=== PATIENT | male | born 1960 | race Caucasian/White ===

== ENCOUNTER → 2016-06-28 | Outpatient (CLI) | payer BC ==
[~2016-06-28] MED LIST: IBUP-1427 PO; LOSA50TA6 PO; OMEP20TA PO; OXYC7.5T78 PO
== END | disposition home or self-care (01) ==
LOC: C.LABBFT 10:39
PROVIDERS: ATTEND Internal Medicine
DX: Z12.5 Encounter for screening for malignant neoplasm of prostate (principal)

== ENCOUNTER → 2016-09-27 | Day surgery (SDC) | payer BC ==
[2016-09-13 10:53] VITALS: Ht 179.1 cm; Wt 95.5 kg
[~2016-09-27] VITALS: Ht 179.1 cm; Wt 95.5 kg
[~2016-09-27] MED LIST changes: -IBUP-1427 PO; +LIDOCAINE HCL 2% 2 ML VIAL (20MG/ML) ONE; +MIDAZOLAM HCL 1 MG/ML 2ML VIAL ONE; +ONDANSETRON INJ 2 MG/ML 2 ML VIAL ONE; -OXYC7.5T78 PO; +PROPOFOL IV EMULSION 10 MG/ML 20 ML VIAL IV ONE; +SODIUM CHLORIDE 0.9% 500ML 500 ML IV ONE
--- NOTE | 2016-09-27 08:16 | Endo History and Physical ---
History & Physical Date of Service: Sep 27, 2016. Chief Complaint: screening,history of polyps Referring Physician: Dr. Alexx Carcamo History of Present Illness 56 yo CM who presents for colonoscopy secondary to history of colon polyps. Past Medical History Male Genitourinary Prob., Reflux, Other Past Surgical History Hx Cardiac Surgery: No Hx Internal Defibrillator: No Hx Pacemaker: No Hx Abdominal Surgery: Yes (INGUINAL HERNIA) Hx of Implantable Prosthesis: No Hx Post-Op Nausea and Vomiting: No Hx Cancer Surgery: No Hx Thoracic Surgery: No Hx Orthopedic: No Hx Urinary Tract Surgery: No Family History Colon CA Social History Smoking Status: Never Smoker Hx Substance Use: No Hx Alcohol Use: Yes (RARELY) Allergies Coded Allergies: Penicillins (Verified Allergy, Unknown, RASH, 09/27/16) Sulfa Antibiotics (Verified Allergy, Unknown, RASH, 09/13/16) Current Medications Reported Home Medications Medications Dose Route/Sig Max Daily Dose Days Date Category Cozaar (Losartan Potassium) 50 Mg Tab 50 Mg PO QAM 09/13/16 Reported Omeprazole 20 Mg Tab 20 Mg PO QAM 12/11/13 Reported Vital Signs Weight (Kilograms): 95.45 Height (Feet): 5 Height (Inches): 10.5 Date Time Temp Pulse Resp B/P Pulse Ox O2 Delivery O2 Flow Rate FiO2 09/27/16 08:04 36.3 94 20 147/93 97 Room Air Physical Exam General Appearance: WD/WN, no apparent distress Respiratory/Chest: Auscultation: breath sounds normal Cardiovascular: Heart Auscultation: RRR Abdomen: Bowel Sounds: normal Inspection & Palpation: soft, non-distended, no tenderness, guarding & rebound Assessment and Plan Assessment: 56 yo CM who presents for colonoscopy secondary to history of colon polyps. Plan: Proceed with colonoscopy.
--- NOTE | 2016-09-27 08:51 | Discharge Instructions ---
Endoscopy Patient Instructions Date / Procedure(s) Performed Sep 27, 2016. Colonoscopy Allergy Information Coded Allergies: Penicillins (Verified Allergy, Unknown, RASH, 09/27/16) Sulfa Antibiotics (Verified Allergy, Unknown, RASH, 09/13/16) Discharge Date / Findings Sep 27, 2016. Colon polyp Diverticulosis Medication Instructions OK to resume all medications today as prescribed Reported Home Medications Medications Dose Route/Sig Max Daily Dose Days Date Category Cozaar (Losartan Potassium) 50 Mg Tab 50 Mg PO QAM 09/13/16 Reported Omeprazole 20 Mg Tab 20 Mg PO QAM 12/11/13 Reported Provider Instructions Activity Restrictions - No exercising or heavy lifting for 24 hours. - Do not drink alcohol the day of the procedure. - Do not drive a car or operate machinery until the day after the procedure. - Do not make any important decisions or sign important papers in 24 hours after the procedure. Following Day: - Return to full activity which may include returning to work/school. Diet Start your diet with liquids and light foods (jello, soup, juice, toast). Then eat your usual diet if not nauseated. Treatment For Common After Affects For mild abdominal pain, bloating, or excessive gas: - Rest - Eat lightly - Lie on right side Follow-Up Information Follow-up with Dr. Alexx Carcamo as scheduled Anesthesia Information What You Should Know You have had a procedure that required some medicine to reduce anxiety and discomfort. This treatment is called moderate sedation. After receiving the treatment, you may be sleepy, but you will be able to breathe on your own. The effects of the treatment may last for several hours. Follow these instructions along with Activity/Diet recommendations noted above: * Do NOT do anything where dizziness or clumsiness would be dangerous. * Rest quietly at home today, then you can be up and about tomorrow. * Have a responsible person stay with you the rest of today. * You may have had an I.V. today. If so, you may take the dressing off later today. Recommendations Call your doctor if: * Trouble breathing * Continuous vomiting for more than 24 hours * Temperature above 101 degrees * Severe abdominal pain or bloating * Pain not relieved by pain medicine ordered * There is increased drainage or redness from any incision * A large amount of rectal bleeding greater than 2-3 tablespoons. (If you had a polyp/s removed or have hemorrhoids, a small amount of blood - from the rectum is to be expected.) * You have any unanswered questions or concerns. IN THE EVENT OF A SERIOUS EMERGENCY, GO TO THE NEAREST EMERGENCY ROOM Your discharge instructions were prepared by provider Javier Peck. Patient Instructions Signature Page Berny Pope Patient (or Guardian) Signature/Date: I have read and understand the instructions given to me by my caregivers. Caregiver/RN/Doctor Signature/Date: The above-named patient and/or guardian has received patient instructions on this date. + Original Patient Signature Page (only) stays with chart. Please make copy for patient.
--- NOTE | 2016-09-27 08:55 | GI REPORT ---
Procedure Date: 09/27/2016 8:34 AM Procedure: Colonoscopy Indications: High risk colon cancer surveillance: Personal history of colonic polyps Medicines: Monitored Anesthesia Care Complications: No immediate complications. Estimated Blood Loss: Estimated blood loss: none. Procedure: Pre-Anesthesia Assessment: - Prior to the procedure, a History and Physical was performed, and patient medications and allergies were reviewed. The patient's tolerance of previous anesthesia was also reviewed. The risks and benefits of the procedure and the sedation options and risks were discussed with the patient. All questions were answered, and informed consent was obtained. Prior Anticoagulants: The patient has taken no previous anticoagulant or antiplatelet agents. ASA Grade Assessment: II - A patient with mild systemic disease. After reviewing the risks and benefits, the patient was deemed in satisfactory condition to undergo the procedure. After I obtained informed consent, the scope was passed under direct vision. Throughout the procedure, the patient's blood pressure, pulse, and oxygen saturations were monitored continuously. The On-site loaner was introduced through the anus and advanced to the terminal ileum. The colonoscopy was performed without difficulty. The patient tolerated the procedure well. The quality of the bowel preparation was good. The terminal ileum, ileocecal valve, appendiceal orifice, and rectum were photographed. Findings: A 4 mm polyp was found in the ascending colon. The polyp was sessile. The polyp was removed with a cold snare. Resection and retrieval were complete. Multiple small-mouthed diverticula were found in the sigmoid colon. Impression: - One 4 mm polyp in the ascending colon, removed with a cold snare. Resected and retrieved. - Diverticulosis in the sigmoid colon. Recommendation: - Resume previous diet. - Continue present medications. - Repeat colonoscopy for surveillance based on pathology results. - Return to primary care physician as previously scheduled. Javier Peck DO 09/27/2016 8:55:27 AM This report has been signed electronically. Note Initiated On: 09/27/2016 8:34 AM I attest to the content of the Intraoperative Record and orders documented therein, exceptions below
--- NOTE | 2016-09-27 09:03 | Anesthesiology Progress Note ---
Anesthesia Post Op Note Date & Time Sep 27, 2016 at 09:03 Vital Signs Pain Intensity: 0 Vital Signs Past 12 Hours Date Time Temp Pulse Resp B/P Pulse Ox O2 Delivery O2 Flow Rate FiO2 09/27/16 08:53 93 16 110/93 95 Room Air 09/27/16 08:04 36.3 94 20 147/93 97 Room Air Notes Mental Status: alert / awake / arousable, participated in evaluation Pt Amnestic to Procedure: Yes Nausea / Vomiting: adequately controlled Pain: adequately controlled Airway Patency, RR, SpO2: stable & adequate BP & HR: stable & adequate Hydration State: stable & adequate Anesthetic Complications: no major complications apparent
[2016-09-27 09:23] VITALS: BP 107/83; PULSE 90; O2SAT 96
== END | disposition home or self-care (01) ==
LOC: C.GI 07:40
PROVIDERS: ATTEND Internal Medicine
DX: Z12.11 Encounter for screening for malignant neoplasm of colon (principal); D12.2 Benign neoplasm of ascending colon; K57.30 Diverticulosis of large intestine without perforation or abscess without bleeding; Z86.010 Personal history of colon polyps

== ENCOUNTER → 2016-10-31 | Outpatient (CLI) | payer BC ==
[~2016-10-31] MED LIST changes: -LIDOCAINE HCL 2% 2 ML VIAL (20MG/ML) ONE; -MIDAZOLAM HCL 1 MG/ML 2ML VIAL ONE; -ONDANSETRON INJ 2 MG/ML 2 ML VIAL ONE; -PROPOFOL IV EMULSION 10 MG/ML 20 ML VIAL IV ONE; -SODIUM CHLORIDE 0.9% 500ML 500 ML IV ONE
--- NOTE | 2016-10-31 17:14 | DIAGNOSTIC IMAGING REPORT ---
LEFT PELVIS/UNILATERAL HIP 2-3VIEWS CLINICAL HISTORY: L HIP PAIN pain COMPARISON: None. DISCUSSION: Findings of dysplastic change of the hips bilaterally. 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 Elevation of the acetabular angles. No evidence for acetabular protrusion. There is no evidence for soft tissue swelling. IMPRESSION: Considerable degenerative and dysplastic change of the hips bilaterally. No acute process. Electronically signed by: Paramjit Ragland M.D. 10/31/2016 5:13 PM Dictated Date/Time: 10/31/2016 5:12 PM
== END ==
LOC: C.RAD 16:14
PROVIDERS: ATTEND Nurse Practitioner
DX: M25.552 Pain in left hip (principal)

== ENCOUNTER → 2017-01-10 | Outpatient (CLI) | payer BC ==
--- NOTE | 2017-01-10 11:32 | DIAGNOSTIC IMAGING REPORT ---
(TESTICULAR) SCROTUM-CONT HISTORY: Pain N50.819 Testicular [id number] COMPARISON: None. FINDINGS: Right testis: 5.3 cm maximum dimension. Normal vascular flow. Small hydrocele. Left testis: 4.9 cm maximum dimension. Normal vascular flow. Several left epididymal cyst. These have a maximum overall dimension of 5 x 3 cm. IMPRESSION: 1. Normal testes bilaterally. 2. Cluster of left epididymal cyst measuring 5 x 3 cm overall. 3. Small right hydrocele. The above report was generated using voice recognition software. It may contain grammatical, syntax or spelling errors. Electronically signed by: Paramjit Ragland M.D. 01/10/2017 11:30 AM Dictated Date/Time: 01/10/2017 11:29 AM
== END | disposition home or self-care (01) ==
LOC: C.ULTR 10:50
PROVIDERS: ATTEND Physician Assistant Medical
DX: N50.819 Testicular pain, unspecified (principal); N50.3 Cyst of epididymis; N43.2 Other hydrocele

== ENCOUNTER → 2017-10-26 | Outpatient (CLI) | payer OTHER ==
--- NOTE | 2017-10-26 09:29 | DIAGNOSTIC IMAGING REPORT ---
C-SPINE ROUTINE 4 OR 5 VIEWS HISTORY: Pain. CERVICAL PARASPINAL MUSCLE SPASM COMPARISON: None. FINDINGS: The cervical spine is visualized from C1 through the superior endplate of T1. There is no fracture. No subluxation. Moderate degenerative disc change C5-C7. Small old avulsion tip of the spinous process C6. This is well-corticated. Prevertebral soft tissues and the atlantodens interval are intact. C1-C2 complex is intact. Neuroforamina are patent bilaterally at all levels IMPRESSION: Moderate degenerative change mid to lower cervical region. No acute bony abnormality. The above report was generated using voice recognition software. It may contain grammatical, syntax or spelling errors. Electronically signed by: Paramjit Ragland M.D. 10/26/2017 9:28 AM Dictated Date/Time: 10/26/2017 9:27 AM
== END | disposition home or self-care (01) ==
LOC: C.RAD1850 09:11
PROVIDERS: ATTEND Family Medicine
DX: M62.838 Other muscle spasm (principal)

== ENCOUNTER 2017-10-30 08:51 | Emergency (ER) | payer OTHER ==
[~2017-10-30] VITALS: Ht 180.3 cm; Wt 94.7 kg
[2017-10-30 08:57] VITALS: TEMP 36.5; Ht 180.3 cm; Wt 94.7 kg
[2017-10-30 09:11] VITALS: O2SAT 98
[2017-10-30] MEDS ORDERED: OPTIRAY 320 IV PRN (09:45)
[2017-10-30 09:46] LABS: BASO % 0.7 %; BASO ABS # 0.05 K/uL (0-0.2); EOS % 2.4 %; EOS ABS # 0.16 K/uL (0-0.5); HEMATOCRIT 47.7 % (42-52); HEMOGLOBIN 17.2 g/dL (14.0-18.0); IG# 0.09 K/uL (0.00-0.02); LYMPH % 23.5 %; LYMPH ABS # 1.58 K/uL (1.2-3.4); MEAN CELL VOLUME 85.9 fL (80-100); MEAN CORPUSCULAR HGB CONC 36.1 g/dl (32-36); MEAN PLATELET VOLUME 9.4 fL (7.4-10.4); MONO % 9.2 %; MONO ABS # 0.62 K/uL (0.11-0.59); NEUT % 62.9 %; NEUT ABS # 4.21 K/uL (1.4-6.5); PLATELET COUNT 182 K/uL (130-400); RED CELL DISTRIBUTION WIDTH SD 40.5 fL (36.4-46.3); WHITE BLOOD COUNT 6.71 K/uL (4.8-10.8)
--- NOTE | 2017-10-30 09:54 | DIAGNOSTIC IMAGING REPORT ---
CHEST ONE VIEW PORTABLE CLINICAL HISTORY: severe hypertension COMPARISON STUDY: No previous studies for comparison. FINDINGS: The cardiac and mediastinal contours are normal. There is no evidence of focal pulmonary consolidation. There is no evidence of failure. No pleural effusions are visualized.[ IMPRESSION: No active disease in the chest. Electronically signed by: Wellington Henson M.D. 10/30/2017 9:52 AM Dictated Date/Time: 10/30/2017 9:52 AM
[2017-10-30 09:55] LABS: ALBUMIN 4.4 gm/dl (3.4-5.0); ALT/SGPT 59 U/L (12-78); AST/SGOT 28 U/L (15-37); BLOOD UREA NITROGEN 15 mg/dl (7-18); CALCIUM 8.9 mg/dl (8.5-10.1); CARBON DIOXIDE 28 mmol/L (21-32); CREATININE 1.31 mg/dl (0.60-1.40); GLUCOSE 105 mg/dl (70-99); LIPASE 165 U/L (73-393); POTASSIUM 3.8 mmol/L (3.5-5.1); SODIUM 137 mmol/L (136-145)
[2017-10-30 09:57] LABS: ISTAT CREATININE 1.2 mg/dl (0.6-1.3); ISTAT IONIZED CALCIUM 1.19 mmol/l (1.12-1.32); ISTAT POTASSIUM 3.8 mEq/L (3.3-5.0)
[2017-10-30 09:59] LABS: PTT PATIENT 32.7 SECONDS (21.0-31.0)
[2017-10-30 10:06] LABS: ALKALINE PHOSPHATASE 111 U/L (45-117); CKMB 4.4 ng/ml (0.5-3.6); TOTAL PROTEIN 8.1 gm/dl (6.4-8.2)
--- NOTE | 2017-10-30 10:21 | DIAGNOSTIC IMAGING REPORT ---
CT OF THE CERVICAL SPINE CLINICAL HISTORY: Severe neck pain COMPARISON STUDY: No previous studies for comparison. CT DOSE: TECHNIQUE: CT scan of the cervical spine was performed from the skull base to the thoracic inlet. Images are reviewed in the axial, sagittal, and coronal planes. IV contrast was not administered for this examination. A dose lowering technique was utilized adhering to the principles of ALARA. FINDINGS: The visualized portions of the lung apices reveal no evidence of pneumothorax. The prevertebral soft tissues are normal. No fractures or subluxations are visualized. There are multilevel degenerative changes, most severe at the C3-4 C5-6 and C6-7 levels. There is multilevel facet joint arthropathy, most severe at the C3-4 level on the left. IMPRESSION: 1. No evidence of acute fracture or traumatic subluxation 2. Multilevel degenerative change Electronically signed by: Wellington Henson M.D. 10/30/2017 10:20 AM Dictated Date/Time: 10/30/2017 10:17 AM
--- NOTE | 2017-10-30 10:26 | DIAGNOSTIC IMAGING REPORT ---
CT ANGIOGRAPHY NECK COMBO CT DOSE: 1047.55 mGy.cm CLINICAL HISTORY: Severe neck pain and dizziness. Possible dissection. TECHNIQUE: Unenhanced images were obtained through the neck. CT angiography was then performed in a dynamic helical fashion during intravenous administration 120 cc of Optiray 320. MIP imaging was performed A dose lowering technique was utilized adhering to the principles of ALARA. COMPARISON STUDY: None. FINDINGS: The lung apices are unremarkable in appearance. There is no pathologic adenopathy. There is no evidence of right carotid artery stenosis or dissection. There is no evidence of left carotid artery stenosis or dissection. There is no evidence of vertebral artery stenosis or dissection. The right vertebral artery appears dominant. The left vertebral artery terminates in a PICA branch. The distal basilar artery is somewhat diminutive. IMPRESSION: No evidence of vertebral or carotid artery stenosis or dissection. Electronically signed by: Wellington Henson M.D. 10/30/2017 10:25 AM Dictated Date/Time: 10/30/2017 10:20 AM
[2017-10-30] MEDS ORDERED: CYCL10TA6 PO (11:05)
[2017-10-30 11:08] VITALS: BP 141/91; PULSE 83; O2SAT 96
--- NOTE | 2017-10-30 11:51 | EMERGENCY ROOM VISIT NOTE ---
History Report prepared by Yanira: Mike Ayers Under the Supervision of: Dr. Sampson Thompson M.D. First contact with patient: 09:03 Chief Complaint: HYPERTENSION Stated Complaint: BLOOD PRESSURE,DIZZY, GROGGY, KNOT IN BACK OF NECK History of Present Illness The patient is a 57 year old male who presents to the Emergency Room with complaints of intermittent neck pain beginning three months ago. He describes his pain as a feeling of "tightness", or "like a knot". The patient has a history of similar neck pain for many years, but states that it has returned three months ago. He states that his neck pain is generally present during the middle of the night, and is improved with Advil or massage. He feels that his neck pain is related to his blood pressure. He also complains of intermittent heart palpitations (x1 week), lightheadedness and a rash on his lower back. The patient has a history of hypertension. His lowest systolic blood pressure over the past week was 141. He reports recent anal discomfort. The patient called his PCP about his symptoms this morning, and was referred to the ED. He has seen a chiropractor for his neck pain. He had an x-ray of his neck last week at the walk-in clinic, but has not heard the results. Source of History: patient Onset: A week ago Position: neck Quality: other ("tightness") Timing: intermittent Modifying Factors (Relieving): other (Advil, massage) Associated Symptoms: + rash (lower back) Note: Positive: intermittent lightheadedness and heart palpitations (x1 week). Review of Systems See HPI for pertinent positives & negatives. A total of 10 systems reviewed and were otherwise negative. Past Medical & Surgical Medical Problems: (1) GERD (gastroesophageal reflux disease) (2) HTN (hypertension) Family History No pertinent family history stated. Social History Smoking Status: Never Smoker Marital Status: Occupation Status: employed Current/Historical Medications Scheduled Cyclobenzaprine Hcl (Flexeril), 10 MG PO TID Losartan Potassium (Cozaar), 50 MG PO QAM Omeprazole (Omeprazole), 20 MG PO QAM Allergies Coded Allergies: Penicillins (Verified Allergy, Unknown, RASH, 10/30/17) Sulfa Antibiotics (Verified Allergy, Unknown, RASH, 10/30/17) Physical Exam Vital Signs Date Time Temp Pulse Resp B/P (MAP) Pulse Ox O2 Delivery O2 Flow Rate FiO2 10/30/17 11:08 83 20 141/91 96 Room Air 10/30/17 09:20 92 10/30/17 09:11 98 Room Air 10/30/17 08:57 36.5 90 18 152/101 98 Room Air Physical Exam GENERAL: Awake, alert, well-appearing, in no acute distress HENT: Normocephalic, atraumatic. Oropharynx unremarkable. EYES: Normal conjunctiva. Sclera non-icteric. NECK: Supple. No nuchal rigidity. FROM. No JVD. RESPIRATORY: Clear to auscultation. CARDIAC: Regular rate, normal rhythm. Extremities warm and well perfused. Pulses equal. ABDOMEN: Soft, non-distended. No tenderness to palpation. No rebound or guarding. No masses. RECTAL: Deferred. MUSCULOSKELETAL: Chest examination reveals no tenderness. The back is symmetrical on inspection without obvious abnormality. There is no CVA tenderness to palpation. No joint edema. LOWER EXTREMITIES: Calves are equal size bilaterally and non-tender. No edema. No discoloration. NEURO: Normal sensorium. No sensory or motor deficits noted. SKIN: No rash or jaundice noted. Medical Decision & Procedures ER Provider Diagnostic Interpretation: Radiology results as stated below per my review and radiologist interpretation: CHEST ONE VIEW PORTABLE FINDINGS: The cardiac and mediastinal contours are normal. There is no evidence of focal pulmonary consolidation. There is no evidence of failure. No pleural effusions are visualized.[ IMPRESSION: No active disease in the chest. Electronically signed by: Wellington Henson M.D. 10/30/2017 9:[address] OF THE CERVICAL SPINE FINDINGS: The visualized portions of the lung apices reveal no evidence of pneumothorax. The prevertebral soft tissues are normal. No fractures or subluxations are visualized. There are multilevel degenerative changes, most severe at the C3-4 C5-6 and C6-7 levels. There is multilevel facet joint arthropathy, most severe at the C3-4 level on the left. IMPRESSION: 1. No evidence of acute fracture or traumatic subluxation 2. Multilevel degenerative change Electronically signed by: Wellington Henson M.D. 10/30/2017 10:[address] ANGIOGRAPHY NECK COMBO FINDINGS: The lung apices are unremarkable in appearance. There is no pathologic adenopathy. There is no evidence of right carotid artery stenosis or dissection. There is no evidence of left carotid artery stenosis or dissection. There is no evidence of vertebral artery stenosis or dissection. The right vertebral artery appears dominant. The left vertebral artery terminates in a PICA branch. The distal basilar artery is somewhat diminutive. IMPRESSION: No evidence of vertebral or carotid artery stenosis or dissection. Electronically signed by: Wellington Henson M.D. 10/30/2017 10:25 AM Laboratory Results 10/30/17 09:11 Red Blood Count 5.55, Mean Corpuscular Volume 85.9, Mean Corpuscular Hemoglobin 31.0, Mean Corpuscular Hemoglobin Concent 36.1, Mean Platelet Volume 9.4, Neutrophils (%) (Auto) 62.9, Lymphocytes (%) (Auto) 23.5, Monocytes (%) (Auto) 9.2, Eosinophils (%) (Auto) 2.4, Basophils (%) (Auto) 0.7, Neutrophils # (Auto) 4.21, Lymphocytes # (Auto) 1.58, Monocytes # (Auto) 0.62, Eosinophils # (Auto) 0.16, Basophils # (Auto) 0.05 10/30/17 09:11 Test 10/30/17 09:11 10/30/17 09:40 White Blood Count 6.71 K/uL (4.8-10.8) Red Blood Count 5.55 M/uL (4.7-6.1) Hemoglobin 17.2 g/dL (14.0-18.0) Hematocrit 47.7 % (42-52) Mean Corpuscular Volume 85.9 fL (80-100) Mean Corpuscular Hemoglobin 31.0 pg (25-34) Mean Corpuscular Hemoglobin Concent 36.1 g/dl (32-36) Platelet Count 182 K/uL (130-400) Mean Platelet Volume 9.4 fL (7.4-10.4) Neutrophils (%) (Auto) 62.9 % Lymphocytes (%) (Auto) 23.5 % Monocytes (%) (Auto) 9.2 % Eosinophils (%) (Auto) 2.4 % Basophils (%) (Auto) 0.7 % Neutrophils # (Auto) 4.21 K/uL (1.4-6.5) Lymphocytes # (Auto) 1.58 K/uL (1.2-3.4) Monocytes # (Auto) 0.62 K/uL (0.11-0.59) Eosinophils # (Auto) 0.16 K/uL (0-0.5) Basophils # (Auto) 0.05 K/uL (0-0.2) RDW Standard Deviation 40.5 fL (36.4-46.3) RDW Coefficient of Variation 13.0 % (11.5-14.5) Immature Granulocyte % (Auto) 1.3 % Immature Granulocyte # (Auto) 0.09 K/uL (0.00-0.02) Prothrombin Time 10.4 SECONDS (9.0-12.0) Prothromb Time International Ratio 1.0 (0.9-1.1) Activated Partial Thromboplast Time 32.7 SECONDS (21.0-31.0) Partial Thromboplastin Ratio 1.3 Est Creatinine Clear Calc Drug Dose 72.2 ml/min Estimated GFR () 69.1 Estimated GFR (Non- 59.6 BUN/Creatinine Ratio 11.7 (10-20) Calcium Level 8.9 mg/dl (8.5-10.1) Total Bilirubin 0.7 mg/dl (0.2-1) Direct Bilirubin 0.2 mg/dl (0-0.2) Aspartate Amino Transf (AST/SGOT) 28 U/L (15-37) Alanine Aminotransferase (ALT/SGPT) 59 U/L (12-78) Alkaline Phosphatase 111 U/L (45-117) Total Creatine Kinase 233 U/L (39-308) Creatine Kinase MB 4.4 ng/ml (0.5-3.6) Creatine Kinase MB Ratio 1.9 (0-3.0) Troponin I < 0.015 ng/ml (0-0.045) Total Protein 8.1 gm/dl (6.4-8.2) Albumin 4.4 gm/dl (3.4-5.0) Lipase 165 U/L (73-393) Thyroid Stimulating Hormone (TSH) 1.330 uIu/ml (0.300-4.500) Lyme Disease IgG Antibody NEG (NEG) Lyme Disease IgM Antibody NEG (NEG) Bedside Hemoglobin 17.0 g/dl (14.0-18.0) Bedside Hematocrit 50 % (42-52) Bedside Sodium 141 mEq/L (135-144) Bedside Potassium 3.8 mEq/L (3.3-5.0) Bedside Chloride 102 mEq/L (101-112) Bedside Total CO2 27 mEq/l (24-31) Anion Gap 17.0 mmol/L (16-25) Bedside Blood Urea Nitrogen 17 mg/dl (7-18) Bedside Creatinine 1.2 mg/dl (0.6-1.3) Bedside Glucose (other) 104 mg/dl (70-99) Bedside Ionized Calcium (Toby) 1.19 mmol/l (1.12-1.32) Labs reviewed by ED physician. ECG Per My Interpretation Indication: palpitations Rate (beats per minute): 93 Rhythm: normal sinus Findings: other (No ST elevations or depressions. Normal axis. ) ED Course 906: Past medical records reviewed. The patient was evaluated in room B10. A complete history and physical examination was performed. 1120: Upon reexamination the patient is resting comfortably. I discussed results and treatment plan with the patient. He verbalizes agreement and understanding. The patient is ready for discharge. Medical Decision Differential diagnosis: Etiologies such as benign hypertension, hypertensive emergency, cardiovascular pathology, pheochromocytoma, electrolyte abnormality, renal disease, endorgan damage, as well as others were entertained. This is a 57-year-old male who presents the emergency department complaining of multiple complaints. The patient is complaining of neck pain that is relieved at night by taking NSAIDs. In addition he is also concerned about palpitations. He is also worried about his blood pressure. I will note that the patient's blood pressure came down in the emergency department without being administered anything for it. 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 This did not show any abnormal elevations depressions or arrhythmias. He also has a normal EKG and normal troponin function. As patient's pain has been ongoing longer than 12 hours I would expect his troponin to be elevated if this were related to his heart. As such it is not. Due to the patient going to a chiropractor he was sent for a CTA of the neck. This did not show any evidence of acute fracture dislocation. I do feel that the patient is well enough to be discharged home follow-up with a primary care physician. Patient was in agreement with treatment plan. Medication Reconcilliation Current Medication List: was personally reviewed by me Blood Pressure Screening Patient's blood pressure: Elevated blood pressure Blood pressure disposition: Referred to PCP Impression Primary Impression: Neck pain Scribe Attestation The scribe's documentation has been prepared under my direction and personally reviewed by me in its entirety. I confirm that the note above accurately reflects all work, treatment, procedures, and medical decision making performed by me. Departure Information Dispostion Home / Self-Care Prescriptions Cyclobenzaprine Hcl (FLEXERIL) 10 Mg Tab 10 MG PO TID, #21 TAB Prov: Sampson Thompson MD 10/30/17 Referrals Anjel Edwards MD (PCP) Forms HOME CARE DOCUMENTATION FORM, IMPORTANT VISIT INFORMATION, WORK / SCHOOL INSTRUCTIONS Patient Instructions ED Neck Back Pain General, ED Palpitations, Hypertension Dc, My [facility] Additional Instructions Need follow up with Dr Tejada's office No Strenuous activity until follow up Follow up with Dr Jimenes's office You were found to have an elevated blood pressure today (>120 sytolic or >90 diastolic). Per medicare guidelines, you need to follow up with this blood pressure screening with your Primary Care Physician (PCP). For a new PCP call [phone]. You have been examined and treated today on an emergency basis only. This is not a substitute for, or an effort to provide, complete comprehensive medical care. It is impossible to recognize and treat all injuries or illnesses in a single emergency department visit. It is therefore important that you follow up closely with Dr Carcamo. Call as soon as possible for an appointment. Thank you for your time and consideration. I look forward to speaking with you again soon. Please don't hesitate to call us if you have any questions.
== END 2017-10-30 11:17 | disposition home or self-care (01) ==
LOC: C.EDB 08:53
DX: M54.2 Cervicalgia (principal); K21.9 Gastro-esophageal reflux disease without esophagitis; I10 Essential (primary) hypertension; Z79.899 Other long term (current) drug therapy; Z88.0 Allergy status to penicillin; Z88.2 Allergy status to sulfonamides